=== PATIENT | female | born 1935 | race Caucasian/White ===

== ENCOUNTER 2021-05-08 13:26 | Inpatient (IN) | payer MEDICARE ==
[~2021-05-08] VITALS: Ht 165.1 cm; Wt 51.9 kg
[2021-05-08] MEDS ORDERED: NAPR220 PO (13:38)
[2021-05-08] MEDS ORDERED: ASPI81CH PO (13:38)
[2021-05-08 16:29] LABS: BASOPHILS ABSOLUTE AUTO 0.04 K/mm3 (0.00-0.23); BASOPHILS PERCENT AUTO 0 % (0-2); EOSINOPHILS ABSOLUTE AUTO 0.02 K/mm3 (0.00-0.68); EOSINOPHILS PERCENT AUTO 0 % (0-6); IMMATURE GRAN ABSOLUTE AUTO 0.03 K/mm3 (0.00-0.10); IMMATURE GRAN PERCENT AUTO 0 % (0-1); LYMPHOCYTES ABSOLUTE AUTO 0.82 K/mm3 (0.84-5.20); LYMPHOCYTES PERCENT AUTO 7 % (21-46); MONOCYTES ABSOLUTE AUTO 0.48 K/mm3 (0.16-1.47); MONOCYTES PERCENT AUTO 4 % (4-13); Mean Corpuscular HGB 30.8 pg (26.0-34.0); Mean Corpuscular HGB Conc 32.5 g/dL (31.5-36.5); Mean Corpuscular Volume 95 fL (80-100); Mean Platelet Volume 10.7 fL (9.1-12.4); NEUTROPHILS ABSOLUTE AUTO 10.43 K/mm3 (1.96-9.15); NEUTROPHILS PERCENT AUTO 88 % (41-73); Platelet Count 211 K/mm3 (150-400); RDW Standard Deviation 44.9 fL (35.1-46.3); Red Blood Cell Count 4.22 M/mm3 (3.80-5.20); White Blood Cell Count 11.82 K/mm3 (4.00-11.30)
[2021-05-08 16:45] LABS: Alanine Aminotransfer (ALT/SGP 16 U/L (12-78); Albumin, Blood 3.6 g/dL (3.4-5.0); Albumin/Globulin Ratio 1.1 (0.8-1.8); Alk Phos 66 U/L (50-136); Anion Gap 3 mmol/L (6-16); Aspartate Aminotrans (AST/SGOT 20 U/L (12-37); Bilirubin, Total 0.9 mg/dL (0.1-1.0); Blood Urea Nitrogen 15 mg/dL (8-24); Bun/Creatinine Ratio 23.7 (12.0-20.0); CO2, Blood 26 mmol/L (21-32); Calcium, Blood 8.5 mg/dL (8.5-10.1); Chloride, Blood 109 mmol/L (98-108); Creatinine, Blood 0.63 mg/dL (0.40-1.00); Globulin, Blood 3.2 g/dL (2.2-4.0); Glomerular Filtration Rate >60 (60-); Glucose, Blood 108 mg/dL (70-99); Potassium, Blood 4.3 mmol/L (3.5-5.5); Sodium, Blood 138 mmol/L (136-145); Total Protein, Blood 6.8 g/dL (6.4-8.2)
[2021-05-08 16:57] LABS: Influenza A, PCR NEGATIVE (NEGATIVE); Influenza B, PCR NEGATIVE (NEGATIVE); Resp Syncytial Virus, PCR NEGATIVE (NEGATIVE); SARS-Cov-2 (COVID-19) PCR, MMC NEGATIVE (NEGATIVE)
[2021-05-08 17:30] LABS: Prothrombin Time Results 10.5 Sec (9.7-11.5)
--- NOTE | 2021-05-08 19:21 | NUR ---
PT. REFUSED TO USE BEDPAN FOR VOIDING, TELEPHONE ORDER RECEIVED FROM dR. FOREMAN TO INSERT ALVARADO CATHETER, TORB.
[2021-05-08 19:56] LABS: Source, Urine Foley catheter
[2021-05-08 19:59] LABS: Bilirubin, Urine Neg (Neg); Blood, Urine Neg (Neg); Glucose Qualitative, Urine Neg (Neg); Ketones, Urine 1+ (Neg); Leukocyte Esterase, Urine 2+ (Neg); Nitrite, Urine Neg (Neg); Protein, Urine Neg (Neg); Urobilinogen, Urine NORM (Normal); pH, Urine 6.5 (5.0-8.0)
[2021-05-08 20:14] LABS: Appearance, Urine Clear (Clear); Bacteria Rare /hpf; Color, Urine Yellow (P-Yellow); Red Blood Cells, Urine Not Seen /hpf (0-2); Squamous Epithelial Cells Not Seen /hpf (Few); Yeast/Fungi Urine Many /hpf
--- NOTE | 2021-05-09 05:36 | NUR ---
DINING HOST SUMMARY PT AAOX4 AND PLEASANT. DR RENTERIA IN TO SEE PT AT START OF SHIFT, PLAN FOR ADDITIONAL XRAYS THIS AM AND SURGERY LATER TODAY. ALVARADO CATH PLACED FOR COMFORT PT WAS TOO PAINFUL TO USE BEDPAN. MEDICATED FOR PAIN WITH IV FENTANYL X3 WITH GOOD RELIEF. VSS, WILL CONTINUE TO MONITOR.
--- NOTE | 2021-05-09 11:03 | NUR ---
PT TO DAY SURGERY AT THIS TIME.
--- NOTE | 2021-05-09 11:51 | NUR ---
PT BEEN HERE TO [facility] BY BED RECENTLY BY OTHER STAFF. History, Chart, Medications and Allergies reviewed before start of procedure. Lungs clear T/O to Auscultation, DISCUSSED WITH DR VINCENT. Patient confirms NPO status and agrees with scheduled surgery. Pre-Op teaching done. Pt verbalizes understanding.
--- NOTE | 2021-05-09 12:57 | NUR ---
05/09/21 Víctor Sethi PT TO OR WITH ALVARADO PRESENT OF MEDIUM DARK YELLOW CLEAR URINE. DRAINED APPROX. 680CC AT START OF CASE.
--- NOTE | 2021-05-09 15:24 | NUR ---
PT BACK FROM DAY SURGERY. NO COMPLAINTS OF PAIN. 2 AQUACEL DRESSINGS TO R HIP CDI.
--- NOTE | 2021-05-09 17:24 | NUR ---
SHIFT SUMMARY PT S/P GAMMA NAILING OF R HIP. 2 AQUACEL DRESSINGS CDI. PT'S PAIN HAS GREATLY IMPROVED SINCE SURGERY AND SHE IS TOLERATING PO INTAKE WELL. PT REMAINS ON ROOM AIR SATTING >92% AND IS A/O X4. VSS. WILL REPORT TO BRIAN HOWE.
[2021-05-10 04:15] LABS: BASOPHILS ABSOLUTE AUTO 0.01 K/mm3 (0.00-0.23); BASOPHILS PERCENT AUTO 0 % (0-2); EOSINOPHILS PERCENT AUTO 0 % (0-6); Hematocrit 34.7 % (33.0-51.0); Hemoglobin 11.5 g/dL (11.5-16.0); IMMATURE GRAN ABSOLUTE AUTO 0.03 K/mm3 (0.00-0.10); IMMATURE GRAN PERCENT AUTO 0 % (0-1); LYMPHOCYTES PERCENT AUTO 9 % (21-46); MONOCYTES ABSOLUTE AUTO 0.97 K/mm3 (0.16-1.47); MONOCYTES PERCENT AUTO 10 % (4-13); Mean Corpuscular HGB 31.1 pg (26.0-34.0); Mean Corpuscular HGB Conc 33.1 g/dL (31.5-36.5); Mean Corpuscular Volume 94 fL (80-100); Mean Platelet Volume 10.9 fL (9.1-12.4); NEUTROPHILS ABSOLUTE AUTO 8.27 K/mm3 (1.96-9.15); NEUTROPHILS PERCENT AUTO 81 % (41-73); Platelet Count 172 K/mm3 (150-400); RDW Coefficient Variation 12.7 % (11.7-14.2); RDW Standard Deviation 44.2 fL (35.1-46.3); White Blood Cell Count 10.18 K/mm3 (4.00-11.30)
--- NOTE | 2021-05-10 06:22 | NUR ---
SHIFT SUMMARY POD1 R HIP GAMMA NAILING DUE TO GLF. VSS. TOLERATING PO INTAKE. DENIES NAUSEA AND VOMITING. PT REPORTS PAIN ON R HIP/LEG WITH MOVEMENT 8/10 PAIN LEVEL. PAIN MANAGED WITH 0.5ML FENTANYL. PT DENIES ANY N/T. ALVARADO INTACT, PATENT AND DRAINING. VOIDING ADEQUATELY. PT DENIES CHEST PAIN AND SOB. PT HAD A HARD TIME SLEEPING LAST NIGHT DUE TO THE NOISE FROM IV PUMP. I OFFERED EAR PLUGS AND IT DID HELPED WITH HER SLEEP. DEXTROSE 5% INFUSING AT 80ML/HR. SCD IN PLACE. CALL LIGHT WITHIN REACH. WILL PROVIDE REPORT TO ONCOMING NURSE.
--- NOTE | 2021-05-10 12:18 | NUR ---
SPOKE W/ PATIENT ABOUT GETTING OUT OF BED FOR LUNCH. SHE REFUSES TO AT THIS TIME, STATES "NOT BEFORE I EAT MY LUNCH". WILL CONT TO ENCOURAGE HER TO GET OUT OF BED.
--- NOTE | 2021-05-10 17:02 | NUR ---
SHIFT SUMMARY POD 1 GAMMA NAILING TO R HIP. VSS ON RA. X2 AQUACELS IN PLACE TO R HIP, C/D/I. 2 PERSON ASSIST W/FWW & GB. TRANSFERED TO CHAIR TODAY W/ THERAPY X1. TOLERATED WELL BUT VERY PAINFUL. MEDICATED PER EMAR W/ OXYCODONE T/O SHIFT, PT RESPONDED WELL WITH THAT. TOLERATING PO INTAKE WELL. IV FLUIDS & IV REMOVED PER DR. MOURA D/T PATIENT REQUEST TO HAVE IV REMOVED. [facility]
--- NOTE | 2021-05-10 21:07 | NUR ---
CATHETER CARE DONE WITH READYCLEANSE WIPES, PT. TOLERATED WELL.
--- NOTE | 2021-05-11 03:21 | NUR ---
SHIFT SUMMARY: PT. AOX4, C/O RLE MEDICATED PER EMAR.R HIP INCISIONS WITH AQUACEL C/D/I. ALVARADO CATHETER DRAINING YELLOW URINE VIA GRAVITY. C/O R HIP PAIN MEDICATED PER EMAR. SLEEPING WELL, NO ACUTE CHANGES NOTED. WILL CONTINUE TO MONITOR.
[2021-05-11 04:45] LABS: BASOPHILS ABSOLUTE AUTO 0.02 K/mm3 (0.00-0.23); BASOPHILS PERCENT AUTO 0 % (0-2); EOSINOPHILS ABSOLUTE AUTO 0.08 K/mm3 (0.00-0.68); EOSINOPHILS PERCENT AUTO 1 % (0-6); Hematocrit 34.3 % (33.0-51.0); Hemoglobin 11.2 g/dL (11.5-16.0); IMMATURE GRAN ABSOLUTE AUTO 0.02 K/mm3 (0.00-0.10); IMMATURE GRAN PERCENT AUTO 0 % (0-1); LYMPHOCYTES ABSOLUTE AUTO 1.57 K/mm3 (0.84-5.20); LYMPHOCYTES PERCENT AUTO 18 % (21-46); MONOCYTES ABSOLUTE AUTO 0.67 K/mm3 (0.16-1.47); MONOCYTES PERCENT AUTO 8 % (4-13); Mean Corpuscular HGB 30.7 pg (26.0-34.0); Mean Corpuscular HGB Conc 32.7 g/dL (31.5-36.5); Mean Corpuscular Volume 94 fL (80-100); Mean Platelet Volume 10.7 fL (9.1-12.4); NEUTROPHILS ABSOLUTE AUTO 6.16 K/mm3 (1.96-9.15); NEUTROPHILS PERCENT AUTO 72 % (41-73); Platelet Count 187 K/mm3 (150-400); RDW Coefficient Variation 12.9 % (11.7-14.2); RDW Standard Deviation 44.7 fL (35.1-46.3); Red Blood Cell Count 3.65 M/mm3 (3.80-5.20); White Blood Cell Count 8.52 K/mm3 (4.00-11.30)
--- NOTE | 2021-05-11 10:40 | NUR ---
ENCOURAGED PATENT TO GET UP TO CHAIR THIS AM. PT REFUSES AT THIS TIME AND STATES SHE WOULD LIKE MORE REST. WILL CONTINUE TO ENCOURAGE ACTIVITY.
--- NOTE | 2021-05-11 16:31 | NUR ---
SHIFT SUMMARY POD 2 GAMMA NAILING TO R HIP. X2 ACQUACELS IN PLACE, C/D/I. PAIN TO R LEG MANAGED PER EMAR, PT REPORTS PAIN TO BE MANAGABLE W/ MEDICATION. VSS ON RA. TOLERATING PO DIET WELL ALTHOUGH HAS HAD A POOR APPETITE TODAY. OFFERED TO ASSIST PATIENT TO CHAIR, PATIENT DECLINES T/O SHIFT. CONTINUING TO ENCOURAGE MOBILITY. WILL REPORT TO ONCOMING RN.
--- NOTE | 2021-05-11 20:27 | NUR ---
CATHETER CARE DONE WITH READYCLEANSE WIPES, PT. TOLERATED WELL.
--- NOTE | 2021-05-12 01:56 | NUR ---
SHIFT SUMMARY: PT. AOX4 BUT APPEARS SAD TODAY, WHEN ASKED, PT. STATED " I JUST DON'T FEEL GOOD, MY RIGHT FOOT HURTS", MEDICATED PER EMAR, REPOSITIONED & PLACED PILLOW UNDER LOWER LEGS WHICH PT. SAID " FEELS BETTER". ALVARADO CATHETER CARE DONE WITH READYCLEANSE WIPES, DRAINING CLYDE URINE VIA GRAVITY. PT. REFUSED TO GET UP ON DAYSHIFT. REPOSITIONED SIDE TO SIDE WITH PILLOW ON HER BACK. ABLE TO MAKE NEEDS KNOWN, CLWR.NO ACUTE CHANGES NOTED.WILL CONTINUE TO MONITOR,
[2021-05-12] MEDS ORDERED: MULVITA PO (10:18)
[2021-05-12] MEDS ORDERED: DOCU100 PO (10:18)
[2021-05-12] MEDS ORDERED: OXAYDO5 M1 PO (10:19)
[2021-05-12] MEDS ORDERED: VITAMIN D5000 UNIT PO (10:20)
[2021-05-12] MEDS ORDERED: XARELTO20 MG PO (10:41)
--- NOTE | 2021-05-12 11:55 | NUR ---
Received referral from nurse doggy daycare activities director (Soni Prince) on 05/12/2021. Patient is to discharge 05/12/2021 with orders for home health and elected [facility]. Met with patient to further discuss the above. Patient is agreeable to the above. Discussed homebound status definition with patient. Patient verbalized understanding. Discussed what home health is vs what it is not (in home caregivers/housekeeping). Patient verbalized understanding. Discussed the next steps in the process of an initial assessment to determine frequency of visits. Again patient verbalized understanding. Offered a chance for patient to ask questions regarding the above of which there were none. Gathered all supporting documentation for referral (face sheet, face to face, med list, H&P, and most recent PT assessment) and sent to [facility] for review. No further interventions required. Pallavi Álvarez Referral Liaison
--- NOTE | 2021-05-12 16:10 | NUR ---
PT. DISCHARGED TO HOME. DC INSTRUCTIONS EXPLAINED AND COPY SENT WITH PATIENT. W/C TRANSPORT HERE TO TAKE PT. HOME. PATIENT DID NOT VOID BUT STATES SHE DOES NOT HAVE TO YET. BLADDER SCANNED FOR LARGEST AMOUNT 29ML. PATIENT INSISTS ON LEAVING REGARDLESS OF VOID STATUS. BLADDER NON DISTENDED. PATIENT PAIN AT A TOLERABLE LEVEL. SON TOOK PRESCRIPITON OF PAIN MED TO [facility] AND GOT IT FILLED. W/C TO EXIT WITH BELONGINGS.
== END 2021-05-12 16:10 | disposition home health service (06) | DRG 482 ==
LOC: ER 13:26 → SURS 18:22 → MEDS 18:22 → SURS 18:35
PROVIDERS: Emergency Medicine; Orthopaedic Surgery; ADMIT Internal Medicine
PROC: 0QS636Z Reposition Right Upper Femur with Intramedullary Internal Fixation Device, Percutaneous Approach (ICD-10-PCS; principal; 2021-05-09 12:00)
DX: S72.141A Displaced intertrochanteric fracture of right femur, initial encounter for closed fracture (principal); Z20.822 Contact with and (suspected) exposure to COVID-19; Z66 Do not resuscitate; B37.3 Candidiasis of vulva and vagina; J44.9 Chronic obstructive pulmonary disease, unspecified; Z28.21 Immunization not carried out because of patient refusal; M54.9 Dorsalgia, unspecified; G89.29 Other chronic pain; F10.20 Alcohol dependence, uncomplicated; F17.200 Nicotine dependence, unspecified, uncomplicated; Z79.82 Long term (current) use of aspirin; Z79.899 Other long term (current) drug therapy; Z88.0 Allergy status to penicillin; Z98.890 Other specified postprocedural states; W19.XXXA Unspecified fall, initial encounter
CPT/HCPCS: 0241U; 36415; 72170; 73552; 73560-RT; 73590; 80053; 81001; 85025; 85610; 93005; 93010; 94760; 96374; 97110; 97116; 97161; 97166; 97530; 99284-25; A9270; C1713; J0690; J1100; J1650; J2250; J2370; J2405; J2704; J3010; J7070; J7120

== ENCOUNTER 2021-06-30 13:05 | Inpatient (IN) | payer MEDICARE ==
[~2021-06-30] VITALS: Ht 165.1 cm; Wt 62.5 kg
[~2021-06-30 13:05] MED LIST: ASPI81CH PO; DOCU100 PO; MULVITA PO; NAPR220 PO; OXAYDO5 M1 PO; VITAMIN D5000 UNIT PO; XARELTO20 MG PO
[2021-06-30 13:28] LABS: BASOPHILS ABSOLUTE AUTO 0.03 K/mm3 (0.00-0.23); BASOPHILS PERCENT AUTO 0 % (0-2); EOSINOPHILS ABSOLUTE AUTO 0.02 K/mm3 (0.00-0.68); EOSINOPHILS PERCENT AUTO 0 % (0-6); Hematocrit 41.9 % (33.0-51.0); Hemoglobin 13.1 g/dL (11.5-16.0); IMMATURE GRAN ABSOLUTE AUTO 0.14 K/mm3 (0.00-0.10); IMMATURE GRAN PERCENT AUTO 1 % (0-1); LYMPHOCYTES ABSOLUTE AUTO 1.51 K/mm3 (0.84-5.20); LYMPHOCYTES PERCENT AUTO 10 % (21-46); MONOCYTES ABSOLUTE AUTO 0.59 K/mm3 (0.16-1.47); MONOCYTES PERCENT AUTO 4 % (4-13); Mean Corpuscular HGB 28.7 pg (26.0-34.0); Mean Corpuscular HGB Conc 31.3 g/dL (31.5-36.5); Mean Corpuscular Volume 92 fL (80-100); Mean Platelet Volume 11.1 fL (9.1-12.4); NEUTROPHILS ABSOLUTE AUTO 13.03 K/mm3 (1.96-9.15); NEUTROPHILS PERCENT AUTO 85 % (41-73); Platelet Count 451 K/mm3 (150-400); RDW Coefficient Variation 13.4 % (11.7-14.2); RDW Standard Deviation 45.1 fL (35.1-46.3); Red Blood Cell Count 4.56 M/mm3 (3.80-5.20); White Blood Cell Count 15.32 K/mm3 (4.00-11.30)
[2021-06-30 13:46] LABS: Albumin/Globulin Ratio 0.4 (0.8-1.8); Bilirubin, Total 1.7 mg/dL (0.1-1.0); Bun/Creatinine Ratio 22.3 (12.0-20.0); Calcium, Blood 8.3 mg/dL (8.5-10.1); Creatinine, Blood 0.85 mg/dL (0.40-1.00); Globulin, Blood 5.3 g/dL (2.2-4.0); Potassium, Blood 3.1 mmol/L (3.5-5.5); Total Protein, Blood 7.3 g/dL (6.4-8.2)
--- NOTE | 2021-06-30 16:40 | NUR ---
ASSUMED CARE PT. ARRIVES FROM ED. ALERT AND ORIENTED UPON ARRIVAL. PT. ARRIVES ON 1L NC, DENIES ANY SOB, OCCASIONAL PRODUCTIVE COUGH NOTED. PT. DENIES ANY CHEST PAIN OR PRESSURE BUT DOES HAVE PALPITATIONS. PT. PLACED ON MARKETING ADMINISTRATIVE ASSISTANT HR 140S. PT. REPORTS FREQUENT BOWL MOVEMENTS AT HOME, ALONG WITH INCREASING WEAKENSS AND DECREASED APPETITE. STOOL SAMPLE TO BE OBTAINED NEXT BM. PICTURES OBTAINED FOR CHART FOR ULCER TO R HEEL AND REDNESS TO COCCYX. PLANS TO CALL FOR MED CLARIFICATION. CALL LIGHT IN REACH.
--- NOTE | 2021-06-30 17:46 | NUR ---
CALL TO DR. MOREL FOR MEDICATION CLARIFICATION. PLANS FOR AMIO GTT AND FLUIDS.
--- NOTE | 2021-06-30 19:15 | NUR ---
ASSUMPTION OF CARE PT RECEIVING AMIODARONE 1MG/MIN, NS 150ML/HR AND KCL SUPPLEMENT. SHE IS ALERT AND ORIENTED. SEALS ENGRAVER SHOWS AFIB WITH RATE 110S-140S. CENTRAL LINE TO RI. PT REQUESTS SOMETHING TO HELP HER SLEEP TONIGHT. DENIES PAIN OR DISCOMFORT AT THIS TIME. SEE SHIFT ASSESSMENT.
--- NOTE | 2021-06-30 22:00 | NUR ---
ASSUMED CARE PATIENT LYING IN BED WITH EYES OPEN. TRACKS TO SOUND. COVID TEST COLLECTED AND SENT, SPUTUM CULTURE SENT. AMIODARONE INF @ 1MG/MIN, KCL INF, AND NS @ 150ML/HR INF TO RT IJ CL. FOOD ON BEDSIDE TABLE IN REACH OF PATIENT. CALL LIGHT IN REACH. MONITOR SHOWS ATRIAL FIB WITH RATE 100'S-120'S. PATIENT DENIES CHEST PAIN AND DISCOMFORT AT THIS TIME. REPORT COMPLETED WITH CARLEY REED.
[2021-06-30 23:32] LABS: SARS-Cov-2 (COVID-19) PCR, MMC POSITIVE (NEGATIVE)
[2021-07-01 03:50] LABS: BASOPHILS ABSOLUTE AUTO 0.01 K/mm3 (0.00-0.23); BASOPHILS PERCENT AUTO 0 % (0-2); EOSINOPHILS PERCENT AUTO 0 % (0-6); Hemoglobin 10.3 g/dL (11.5-16.0); IMMATURE GRAN PERCENT AUTO 1 % (0-1); LYMPHOCYTES ABSOLUTE AUTO 0.65 K/mm3 (0.84-5.20); LYMPHOCYTES PERCENT AUTO 5 % (21-46); MONOCYTES ABSOLUTE AUTO 0.23 K/mm3 (0.16-1.47); MONOCYTES PERCENT AUTO 2 % (4-13); Mean Corpuscular HGB 28.6 pg (26.0-34.0); Mean Corpuscular HGB Conc 32.2 g/dL (31.5-36.5); Mean Corpuscular Volume 89 fL (80-100); Mean Platelet Volume 11.1 fL (9.1-12.4); NEUTROPHILS ABSOLUTE AUTO 12.12 K/mm3 (1.96-9.15); NEUTROPHILS PERCENT AUTO 92 % (41-73); Platelet Count 281 K/mm3 (150-400); RDW Coefficient Variation 13.3 % (11.7-14.2); RDW Standard Deviation 43.9 fL (35.1-46.3); White Blood Cell Count 13.11 K/mm3 (4.00-11.30)
[2021-07-01 04:16] LABS: Albumin, Blood 1.7 g/dL (3.4-5.0); Albumin/Globulin Ratio 0.4 (0.8-1.8); Bilirubin, Total 0.5 mg/dL (0.1-1.0); Bun/Creatinine Ratio 35.9 (12.0-20.0); Calcium, Blood 6.8 mg/dL (8.5-10.1); Creatinine, Blood 0.67 mg/dL (0.40-1.00); Globulin, Blood 3.9 g/dL (2.2-4.0); Potassium, Blood 3.7 mmol/L (3.5-5.5); Total Protein, Blood 5.6 g/dL (6.4-8.2)
--- NOTE | 2021-07-01 06:16 | NUR ---
SHIFT SUMMARY PATIENT SLEPT THROUGH MOST OF SHIFT. NO URINE OUTPUT OR BM THIS SHIFT. AMIODARONE DECREASED FROM 1MG/MIN TO 0.5MG/MIN AT 2335. RHYTHM REMAINED A FIB WITH RATE 90'S-140'S. PATIENT REMAINED 90'S-110'S FOR APPROXIMATELY 30 MINUTES, THEN RETURNED TO 120'S-140'S. COVID TEST CAME BACK POSITIVE. SPUTUM CULTURE SENT. PATIENT FELT SHORT OF BREATH EARLY THIS MORNING DESPITE SPO2 BEING 91-93%. 2LNC PLACED ON PATIENT WITH SPO2 98%. BY END OF SHIFT PATIENT REQUESTED NC BE REMOVED-SPO2 NOW 93%. BP REMAINED STABLE-NO PRESSORS NEEDED. PATIENT HELPED WITH TURNS AND USED CALL LIGHT APPROPRIATELY. NO OTHER CHANGES DURING SHIFT.
--- NOTE | 2021-07-01 12:00 | NUR ---
PT HAD NOT VOIDED YET THIS SHIFT. SHE STATES SHE HAS NO URGE TO GO WHICH IS UNUSUAL FOR HER. BLADDER SCAN SHOWS 600ML. STRAIGHT CATH PROCEDURE PERFORMED UNDER STERILE PROCEDURE. 550ML OF URINE DRAINED.
[2021-07-01 18:00] LABS: Base Excess Venous -16.5 mmol/L; Bicarbonate Venous 12.2 mmol/L (24.0-30.0); PO2 Venous 57.8 mmHg (38-42)
[2021-07-01 18:03] LABS: BASOPHILS ABSOLUTE AUTO 0.04 K/mm3 (0.00-0.23); BASOPHILS PERCENT AUTO 0 % (0-2); EOSINOPHILS PERCENT AUTO 0 % (0-6); Hemoglobin 9.9 g/dL (11.5-16.0); IMMATURE GRAN ABSOLUTE AUTO 0.45 K/mm3 (0.00-0.10); IMMATURE GRAN PERCENT AUTO 2 % (0-1); LYMPHOCYTES ABSOLUTE AUTO 1.25 K/mm3 (0.84-5.20); LYMPHOCYTES PERCENT AUTO 6 % (21-46); MONOCYTES ABSOLUTE AUTO 0.48 K/mm3 (0.16-1.47); MONOCYTES PERCENT AUTO 2 % (4-13); Mean Corpuscular HGB Conc 30.9 g/dL (31.5-36.5); Mean Platelet Volume 11.5 fL (9.1-12.4); NEUTROPHILS ABSOLUTE AUTO 18.55 K/mm3 (1.96-9.15); NEUTROPHILS PERCENT AUTO 89 % (41-73); Platelet Count 314 K/mm3 (150-400); RDW Coefficient Variation 13.7 % (11.7-14.2); Red Blood Cell Count 3.41 M/mm3 (3.80-5.20); White Blood Cell Count 20.77 K/mm3 (4.00-11.30)
[2021-07-01 18:17] LABS: Source, Urine Foley catheter
[2021-07-01 18:23] LABS: Appearance, Urine Hazy (Clear); Bilirubin, Urine Neg (Neg); Blood, Urine 1+ (Neg); Color, Urine Amber (P-Yellow); Glucose Qualitative, Urine Neg (Neg); Ketones, Urine 1+ (Neg); Leukocyte Esterase, Urine 1+ (Neg); Nitrite, Urine Neg (Neg); Protein, Urine 2+ (Neg); Specific Gravity, Urine 1.025 (1.003-1.022); Urobilinogen, Urine 1+ (Normal)
[2021-07-01 18:27] LABS: Albumin, Blood 1.4 g/dL (3.4-5.0); Albumin/Globulin Ratio 0.4 (0.8-1.8); Bilirubin, Total 0.4 mg/dL (0.1-1.0); Bun/Creatinine Ratio 36.9 (12.0-20.0); Calcium, Blood 6.7 mg/dL (8.5-10.1); Creatinine, Blood 0.68 mg/dL (0.40-1.00); Globulin, Blood 3.6 g/dL (2.2-4.0); Potassium, Blood 4.5 mmol/L (3.5-5.5)
[2021-07-01 18:33] LABS: Mean Corpuscular Volume 94 fL (80-100)
--- NOTE | 2021-07-01 18:39 | NUR ---
PT WAS MOVED FROM ICU 14 TO ICU 6. PT HAD BEEN A/OX4 ALL DAY, USING CALL LIGHT APPROPRIATELY. AFTER MOVE TO NEW ROOM PT STATES SHE "CAN'T BREATHE". SPO2 IN THE 90'S, BUT PLACED 4L NC FOR COMFORT WHICH DID NOT HELP. PT WAS STILL TALKING IN FULL SENTENCES AND DOES NOT LOOK ANYMORE DISTRESSED THAN SHE HAD ALL DAY. HR REMAINED IN 120'S-140'S ON AMIO GTT. GOT A DOSE OF PO METOPROLOL. LS WERE COARSE BUT LS HAD BEEN COARSE T/O THE DAY. BLADDER SCAN ONLY SHOWED 35ML. CONSULTED RT THAT SAID PT WAS NOT APPROPRIATE FOR BREATHING TX SHE IS NOT WHEEZING. DID NOT APPEAR FLUID OVERLOADED. AFTER COMING OUT OF THE ROOM BRIEFLY, NOTICED THERE WAS A LOW BP READING WHICH HAD HAPPENED T/O THE DAY AND EVERYTIME IT WAS RETAKEN IT WOULD BE NORMAL. WENT TO THE DOOR TO CHECK ON PT AND PT WAS AGONAL BREATHING, PALE, AND UNRESPONSIVE. IMMEDIATELY STOPPED AMIO GTT, GOT RT TO THE ROOM, BAGGED PT, STARTED BOLUS, CALLED DR. RIDDLE, AND SUPERVISER CALLED FAMILY. PT IS DNR. AFTER ABOUT 2 MINUTES OF BAGGING PT STARTED BECOMING RESPONSIVE, BP IMPROVED, AND WAS ABLE TO GET SPO2 READING AGAIN. AFTER PT WAS RESPONSIVE SHE STATES THAT SHE HAS TO "PEE PEE" WHICH IS THE FIRST TIME ALL DAY SHE HAD THE URGE TO GO. PT STILL UNABLE TO VOID, ALVARADO PLACED FOR ACCURATE OUTPUT. DR. ROMO CONSULTED. LABS DRAWN. EKG DONE. PT IS ABLE TO VERBALIZE AND STATES SHE FEELS BETTER THAN SHE DID EARLIER. LS NOW ARE CLEAR AND WAS ABLE TO MOVE HER BACK TO 4L NC. PALLIATIVE CARE RN CALLED FAMILY AND UPDATED THEM. REPORTING OFF TO NOC RN.
[2021-07-01 19:17] LABS: Bacteria Mod /hpf; Squamous Epithelial Cells Many /hpf (Few); Yeast/Fungi Urine Many /hpf
[2021-07-01 19:18] LABS: Hyaline Casts 0-2 /lpf (0-2); Renal Tubular Epi Cast 0-2 /lpf (0)
--- NOTE | 2021-07-01 20:00 | NUR ---
ASSUMED CARE OF PT AT 1915. REPORT RECEIVED. PT PRESENTS IN BED. ALERT AND ORIENTED. SOMEWHAT FORGETFUL AT TIMES. PT WITH BLOOD PRESSURES THAT ARE BORDERLINE LOW. PLEASE SEE VITAL SIGN FLOWSHEET FOR DETAILS. PT ABLE TO HAVE AND HOLD FULL CONVERSATIONS AT THIS TIME. WILL REVIEW CHART AND PLAN OF CARE FOR THIS PT.
[2021-07-01 21:24] LABS: PCO2 Venous 34.8 mmHg (38-42); pH Blood Venous 7.22 (7.34-7.37)
[2021-07-01 21:25] LABS: Base Excess Venous 13.1 mmol/L; Bicarbonate Venous 14.9 mmol/L (24.0-30.0); PO2 Venous 72.9 mmHg (38-42)
--- NOTE | 2021-07-01 23:54 | NUR ---
HAVE STARTED MAY AT THIS TIME AT VERY LOW RATE OF 5MCG'S. WILL TITRATE UP NEEDED. DID DO TEACHING WITH PT ON MED. PT REMAINS WITH LOW URINARY OUTPUT. WILL MONITOR CLOSELY.
--- NOTE | 2021-07-02 06:30 | NUR ---
CHARTING HAS REFLECTED MEDITECH DOWNTIME. PT HAS STATED THAT SHE HAD ISSUES WITH SLEEP TONIGHT. BLOOD PRESSURES HAVE IMPROVED WITH MAY. SEE VS FLOWSHEET FOR DETAILS. ONLY 75 ML URINE OUTPUT FROM ALVARADO THIS SHIFT. THIS COMPARABLE TO DAYSHIFT OUTPUT. WILL CONTINUE TO MONITOR PT, AND WILL REPORT OFF TO ONCOMING RN.
--- NOTE | 2021-07-02 08:52 | NUR ---
ECHO IN ROOM NOW, PATIENT ALERT AND ORIENTED, CALL LIGHT WITH IN REACH, WILL MEDICATE WITH AM MEDS AFTER THE CHO, PLEASANT TO CARE
[2021-07-02 09:22] LABS: Hematocrit 29.5 % (33.0-51.0); Hemoglobin 9.4 g/dL (11.5-16.0); Mean Corpuscular HGB 28.7 pg (26.0-34.0); Mean Corpuscular HGB Conc 31.9 g/dL (31.5-36.5); Mean Corpuscular Volume 90 fL (80-100); Mean Platelet Volume 12.4 fL (9.1-12.4); Platelet Count 200 K/mm3 (150-400); RDW Coefficient Variation 13.8 % (11.7-14.2); RDW Standard Deviation 45.3 fL (35.1-46.3); Red Blood Cell Count 3.28 M/mm3 (3.80-5.20); White Blood Cell Count 24.83 K/mm3 (4.00-11.30)
[2021-07-02 10:13] LABS: Bun/Creatinine Ratio 33.2 (12.0-20.0); Calcium, Blood 6.5 mg/dL (8.5-10.1); Creatinine, Blood 0.99 mg/dL (0.40-1.00); Potassium, Blood 3.7 mmol/L (3.5-5.5)
--- NOTE | 2021-07-02 14:18 | NUR ---
Echocardiogram completed.
--- NOTE | 2021-07-02 14:38 | NUR ---
DR RIDDLE ROUNDED
--- NOTE | 2021-07-02 16:12 | NUR ---
WOUND CARE NURSE IN SEEING PATIENT NOW TO ADDRESS MIKE HEEL AND COCCYX
[2021-07-02 16:58] LABS: Appearance, Urine Hazy (Clear); Bilirubin, Urine Neg (Neg); Blood, Urine 4+ (Neg); Glucose Qualitative, Urine Neg (Neg); Ketones, Urine Neg (Neg); Leukocyte Esterase, Urine Neg (Neg); Nitrite, Urine Neg (Neg); Protein, Urine 1+ (Neg); Urobilinogen, Urine NORM (Normal)
[2021-07-02 17:09] LABS: Color, Urine Pale Yellow (P-Yellow)
[2021-07-02 17:10] LABS: Yeast/Fungi Urine Many /hpf
[2021-07-02 17:11] LABS: Hyaline Casts 0-2 /lpf (0-2); Squamous Epithelial Cells Mod /hpf (Few)
[2021-07-02 17:12] LABS: Bacteria Few /hpf
--- NOTE | 2021-07-02 18:54 | NUR ---
PATIENT ALERT AND ORIENTED, CONFUSED AND FORGETFUL AT TIMES, BECOMES OPPISTIONAL AND IRRITABLE EASILY. DEEP NON PRODUCTIVE COUGH, UA SENT FOR SAMPLE, OUTPUT IMPORVED TO 45O ML, GYMNASTICS INSTRUCTOR CAME AND CGHANGED THE DRESSINGS ON THE LEFT HEEL AND COCCYX, DIRECTIONS IN ORDERS. PATIENT COMPLAINING OF NOT FEELING LIKE SHE IS BREATHING, SATS 100% ON 2L O2 FOR COMORT, ANXIETY HAS INCREASED, CALL AND REPORTED TO DR RIDDLE, WAITING FOR ORDER TO COME THROUGH ON PIXES FOR ATIVAN, PAITENT REFUSES TO HAVE BLINDS OPEN. MORE FAMILY TO COME AND VISIT [facility]. WILL RELAY TO ALYSSA RN, CALL JORGE REYNOSO IN REACH, [facility]
--- NOTE | 2021-07-02 20:00 | NUR ---
ASSUMED CARE OF PT AT 1915. REPORT RECEIVED. PT PRESENTS IN BED. ALERT AND VERY ANXIOUS WITH CHIEF COMPLAINT THAT SHE CAN NOT BREATHE. PT'S OXYEGON SATURATIONS 94-95 PERCENT WITH SUPPLEMENTAL OXYGEN. LUNG SOUNDS DIFFER FROM PREVIOUS DAY'S ASSESSMENT BY SAME RN. RHONCHI SCATTERED THROUGH LEFT LUNG WINN WITH MILD COARSENESS TO UPPER RIGHT DIMINISHED IN BASE. PROVIDED FLUTTER VALVE FOR PT TO USE. TEACHING OF USE AND RATIONALE FOR DEVICE. PT STATES THIS HAS HELPED WITH HER BREATHING. DISCUSSED WITH RESPIRATORY THERAPY THIS APPROACH. HAVE MEDICATED PT AFTERWARDS WITH ONE TIME LORAZEPAM 0.[address] RIDDLE. PT HAS BEEN ABLE TO REST. DID HOLD DOSE UNTIL AFTER HER TWO DAUGHTERS HAD COMPLETED THERE VISIT. WILL REVIEW CHART AND PLAN OF CARE FOR THIS PT.
--- NOTE | 2021-07-03 04:15 | NUR ---
PT HAS BEEN ABLE TO REST BETTER THIS NIGHT. HAS TOLERATED Q 2 HOUR TURNS IN BED. HAS NOT HAD ANY FURTHER COMPLAINTS OF NOT BEING ABLE TO BREATHE. WILL CONTINUE TO MONITOR.
--- NOTE | 2021-07-03 08:41 | NUR ---
AWAKE AND ORIENTED, REFUSED BREAKFAST AND AM ORAL CARE, CALL LIGHT WITH IN REACH, BOOSTED IN BED HOB 70%, SON CALLED THIS AM, WCTM
--- NOTE | 2021-07-03 14:23 | NUR ---
REPORT TO CHER SEALS RN, PATIENT TRANSFERED TO 303, FAMILY NOTIFIED, BELONGINGS SENT WITH PATIENT, NO CHANGES
--- NOTE | 2021-07-03 16:11 | NUR ---
ASSUMED CARE OF PT @1430 FROM ICU. PT ON 2L O2 VIA NC. PT A&O X3. PT WITH FAMILY AT SIDE. PT INSTRUCTED FOR CALL LIGHT USE. PT RESTING WITH SIDERAILS AND CALL LIGHT WITHIN REACH.
--- NOTE | 2021-07-03 18:08 | NUR ---
SHIFT SUMMARY- PT TRANSFERED TO MED FROM ICU. PT PLEASANT MOOD. PT COOPERATIVE WITH PRESCRIBED CARE. PT WITH FAMILY IN ROOM MOST OF SHIFT. PT APPETITE GOOD FOR DINNER. PT RESTING COMFORTABLY WITH CALL LIGHT AND SIDE RAILS UP.
--- NOTE | 2021-07-03 18:53 | NUR ---
pt moved to medical floor. very frail will continue to monitor to see if she can rally. will do polst.
[2021-07-04 05:25] LABS: Base Excess Venous -11.8 mmol/L; Bicarbonate Venous 15.9 mmol/L (24.0-30.0); PCO2 Venous 29.9 mmHg (38-42); PO2 Venous 66.6 mmHg (38-42)
[2021-07-04 05:40] LABS: BASOPHILS ABSOLUTE AUTO 0.04 K/mm3 (0.00-0.23); BASOPHILS PERCENT AUTO 0 % (0-2); EOSINOPHILS ABSOLUTE AUTO 0.16 K/mm3 (0.00-0.68); EOSINOPHILS PERCENT AUTO 1 % (0-6); Hematocrit 32.6 % (33.0-51.0); Hemoglobin 10.3 g/dL (11.5-16.0); IMMATURE GRAN ABSOLUTE AUTO 0.33 K/mm3 (0.00-0.10); IMMATURE GRAN PERCENT AUTO 2 % (0-1); LYMPHOCYTES ABSOLUTE AUTO 0.68 K/mm3 (0.84-5.20); LYMPHOCYTES PERCENT AUTO 3 % (21-46); MONOCYTES ABSOLUTE AUTO 0.47 K/mm3 (0.16-1.47); MONOCYTES PERCENT AUTO 2 % (4-13); Mean Corpuscular HGB 28.3 pg (26.0-34.0); Mean Corpuscular HGB Conc 31.6 g/dL (31.5-36.5); Mean Corpuscular Volume 90 fL (80-100); NEUTROPHILS ABSOLUTE AUTO 19.04 K/mm3 (1.96-9.15); NEUTROPHILS PERCENT AUTO 92 % (41-73); NRBC ABSOLUTE 0.25 K/mm3 (0.00-0.02); NRBC Auto 1.2 /100 WBC (0.0-0.2); RDW Coefficient Variation 14.4 % (11.7-14.2); RDW Standard Deviation 46.9 fL (35.1-46.3); Red Blood Cell Count 3.64 M/mm3 (3.80-5.20); White Blood Cell Count 20.72 K/mm3 (4.00-11.30)
[2021-07-04 05:42] LABS: Mean Platelet Volume 13.2 fL (9.1-12.4)
[2021-07-04 06:08] LABS: Albumin, Blood 1.6 g/dL (3.4-5.0); Albumin/Globulin Ratio 0.5 (0.8-1.8); Bilirubin, Total 1.5 mg/dL (0.1-1.0); Bun/Creatinine Ratio 30.6 (12.0-20.0); Calcium, Blood 6.7 mg/dL (8.5-10.1); Creatinine, Blood 1.44 mg/dL (0.40-1.00); Platelet Count 73 K/mm3 (150-400); Total Protein, Blood 4.6 g/dL (6.4-8.2)
--- NOTE | 2021-07-04 06:14 | NUR ---
SHIFT SUMMARY - IV FLUIDS STOPPED THIS AM - CONTACTED DR. LEMUS WITH UPDATE ON I&O'S AT 0600. RELAYED PT HAS EDEMATOUS UPPER EXTREMITIES ALSO AND PT IS FRAIL AND CACHETIC, WITH POOR PO INTAKE. IV INTAKE 1700, ALVARADO OUTPUT 200. SEE LABS THIS AM. OTHERWISE NO ACUTE CHANGES THROUGHOUT THIS SHIFT. PT HAS BEEN SLEEPING THROUGHOUT MOST OF THE NIGHT. PT DID REPORT ABDOMINAL DISCOMFORT AT THE BEGINNING OF THE SHIFT, BUT DECLINED TYLENOL. CALL LIGHT WITHIN REACH. BED IN LOW POSITION. FLUIDS AT BEDSIDE. WILL CONTINUE TO MONITOR THIS AM. LIVER ENZYMES ELEVATED, KIDNEY FUNCTION DECLINING - SEE LABS.
--- NOTE | 2021-07-04 14:31 | NUR ---
PT PLEASANT AND COOPERATIVE. A/O X3. C/O HEEL PAIN. MEDICATED PER EMAR. H/R REGUALR. AFIB PER TELE STRIP IN CHART. AFIB PER WEAVING INSTRUCTOR TOO. NO MURMUR NOTED. LUNG SOUNDS DIMINISHED. ON ROOM AIR. BREATHING IS EASY AND UNLABORED. ACTIVE BOWEL SOUNDS. ALVARADO DRAINING TO GRAVITY. MINIMAL CLEAR YELLOW URINE PRESENT. MEPLEX IN PLACE OF RT HEEL. HEEL PROTECTORS IN PLACE. +2 PITTING EDEMA ON UPPER EXTREMITES AND LOWER EXTREMITIES. MEPLEX ON COCCYX IN PLACE. PT IS NOT EATING OR DRINKING WELL. REFUSES TO EAT. STATES SHE IS NOT HUNGRY. BED IN LOW POSITION, CALL LIGHT IN REACH, CALLS APPROPRIATLEY.
--- NOTE | 2021-07-04 15:07 | NUR ---
REVIEWED NOTES WOUND CARE DONE ON BY SET UP MACHINIST. PER WOUND CARE ORDERS IT IS TO BE CHANGED EVERY THREE DAYS. MEPLEX IN PLACE IS C/D/I. HEEL PROTECTORS ARE IN PLACE. PT C/O PAIN. MEDICATED PER EMAR.
--- NOTE | 2021-07-04 15:19 | NUR ---
PT SON SILVERIO GLEZ REQUESTING AN UPDATE ON PT. PER PT WE CAN SPEAK TO HIM ABOUT ANYTHING. SILVERIO CAN BE REACHED AT [phone].
--- NOTE | 2021-07-04 16:58 | NUR ---
CALLED PT SON TO RELAY THAT THERE IS DR IS NOT AVAIABLE AT THIS TIME. LEFT VOICEMAIL FOR SON SILVERIO TO CALL US BACK IGF HE HAS ANY IMMEDIATE QUESTIONS. IF NOT AN ATTENDING WILL CALL HIM IN THE MORNING.
--- NOTE | 2021-07-04 18:21 | NUR ---
PT COOPERATIVE WITH CARE. A/O X3. C/O PAIN IN HEELS. MEDICATED PER EMAR. H/R IS IRREGUALR. AFIB PER TELE IN 100'S. NO MURMUR NOTED. COARSE CRACKLES IN LUNGS. ON ROOM AIR. PT HAS ALVARADO CATH DRAINING TO GRAVITY. 75ML OF URINE PRODUCED OVER SHIFT. URINE IS DARK IN COLOR. PT HAS MEPLEX ON COCCYX IN PLACE. WOUND DRESSINGS CHANGED ON . CHANGE Q3DAYS. MEPLEX C/D/I. HEEL PROTECTORS IN PLACE. 2+ PITTING EDEMA ON UPPER EXTREMITES WELL LOWER EXTREMITES. PT DOES NOT HAVE AN APPRETITE. EXPLAINED TO PT HOW IMPORTANT EATING/DRINKING IS. PT DECLINES FOOD AND DOES NOT WANT TO DRINK ANY FLUIDS EITHER. BED IN LOW POSITION, CALL LIGHT IN REACH, CALLS APPROPRIATLEY.
--- NOTE | 2021-07-04 18:53 | NUR ---
AGREE WITH STUDENT NOTES AND DOCUMENTATIONS
--- NOTE | 2021-07-04 20:50 | NUR ---
HOSPITALIST CONTACTED REGARDING PT'S BP OF 86/56. NOTIFIED OF DECREASED FLUID INTAKE AND OUTPUT. ORDER OBTAINED FOR 250 ML BOLUS OF NS. NOTIFIED OF PREVIOUS FLUID DISCONTINUATION DUE TO INCREASED SWELLING OF UPPER AND LOWER EXTREMITIES ALONG WITH COARSE LUNG SOUNDS. I ASKED IF THE PATIENT'S 200 MG OF AMIODORONE SHOULD BE HELD; DR ROBERSON SAYS OK TO ADMINISTER.
--- NOTE | 2021-07-04 22:52 | NUR ---
HOSPITALIST CONTACTED REGARDING NOTED PT GURGLING RESPIRATIONS AND INABILITY TO COUGH ANYTHING UP DESPITE WET COUGH. ORDER OBTAINED FOR NT SUCTIONING PER RT IF NEEDED AND NPO WITH SPEECH EVAL IN THE AM. HOSPITALIST ALSO INFORMED OF PT'S SKIN COLOR CHANGE FROM PALE TO YELLOW-TINGED.
--- NOTE | 2021-07-05 04:36 | NUR ---
TRIAL COURT JUSTICE SUMMARY ADMITTED FOR NEW ONSET A-FIB. PT IS DNR. COVID POSITIVE. SHE HAS HAD DECREASED APPETITE AND NO FLUID INTAKE. BP WAS 86/56 AT START OF SHIFT; 250 ML NS BOLUS ADMINISTERED WITH IMPROVEMENT TO 111/89. PT WITH 3+ PITTING EDEMA TO BUE AND 2+ PITTING EDEMA TO BLE. SHE HAS COARSE LUNG SOUNDS AND POSSIBLE ASPIRATION WITH PM MEDICATIONS. PT IS NPO PENDING SPEECH THERAPY EVAL. PLACED ON 2L BY NC PER RT PT SATTING AT 87% ON RA DURING THE NIGHT. SKIN IS VERY PALE AND PT APPEARS VERY AGED. SHE HAS HAD NO URINE OUTPUT IN THE ALVARADO THIS SHIFT. TELE IS AFIB IN THE 100S TO 110S. SHE IS ALERT AND ORIENTED X3 BUT SEEMS CONFUSED AT TIMES. HANDS AND FEET ARE VERY COLD TO THE TOUCH.
[2021-07-05 05:40] LABS: Hemoglobin 10.5 g/dL (11.5-16.0); Mean Corpuscular HGB 28.5 pg (26.0-34.0); Mean Platelet Volume 12.1 fL (9.1-12.4); NRBC ABSOLUTE 0.55 K/mm3 (0.00-0.02); NRBC Auto 1.9 /100 WBC (0.0-0.2); Platelet Count 79 K/mm3 (150-400); RDW Standard Deviation 52.6 fL (35.1-46.3); Red Blood Cell Count 3.69 M/mm3 (3.80-5.20); White Blood Cell Count 28.46 K/mm3 (4.00-11.30)
[2021-07-05 05:46] LABS: Mean Corpuscular Volume 95 fL (80-100)
--- NOTE | 2021-07-05 05:54 | NUR ---
PT NOTED TO BE PALE AND WITH DECREASED RESPONSIVENESS. BP OF 62/44 AND NO URINE OUTPUT. CONTACTED DR LEMUS AND REQUESTED [id number] EVAL OF PT. UNABLE TO GET PULSE OX DUE TO COLD FINGERS. RT CONTACTED FOR PULSE OX READING. DR. LEMUS TO PT ROOM FOR EVAL AND DECISION MADE FOR TRANSFER TO ICU. [facility]APID RESPONSE CALLED.
--- NOTE | 2021-07-05 05:57 | NUR ---
PT TAKEN TO ICU BY RAPID RESPONSE NURSES AND RT. REPORT AT BEDSIDE TO ICU NURSE. ATTEMPTED TO CONTACT PT SON AND GRANDDAUGHTER BUT NO RESPONSE AT THIS TIME.
[2021-07-05 06:06] LABS: Albumin, Blood 1.6 g/dL (3.4-5.0); Albumin/Globulin Ratio 0.5 (0.8-1.8); Bilirubin, Total 1.1 mg/dL (0.1-1.0); Bun/Creatinine Ratio 28.6 (12.0-20.0); Calcium, Blood 6.9 mg/dL (8.5-10.1); Creatinine, Blood 1.99 mg/dL (0.40-1.00); Potassium, Blood 4.9 mmol/L (3.5-5.5); Total Protein, Blood 4.6 g/dL (6.4-8.2)
[2021-07-05 06:20] LABS: PCO2 Venous 59.3 mmHg (38-42); PO2 Venous 54.4 mmHg (38-42); pH Blood Venous 6.97 (7.34-7.37)
[2021-07-05 06:21] LABS: Base Excess Venous -18.2 mmol/L; Bicarbonate Venous 10.8 mmol/L (24.0-30.0)
--- NOTE | 2021-07-05 06:39 | NUR ---
ASSUMED PT CARE AT 0555 ARRIVED ON RAPID RESPONSE THAT WAS CALLED. PT MINIMALLY RESPONSIVE AND HYPOTENSIVE. NS FLUID BOLUS INFUSING AT TIME OF ARRIVAL. UNABLE TO OBTAIN OXYGEN SATURATIONS D/T POOR PERFUSION. ORDERS TO TRANSFER PT TO ICU. RT AT BEDSIDE PLACING PT ON BIPAP; 20/12; FIO2 100%, RR 20'S. UPON ARRIVING TO ICU PT'S BP'S WERE DIFFICULT TO OBTAIN. LEVOPHED STARTED AT 5MCG/MIN WITH FLUID BOLUS STILL INFUSING. SBP 100'S WITH MAP'S 80'S; THEREFORE, TURNED OFF LEVOPHED TO OBTAIN BLOOD DRAW. PT DIDN'T TOLERATE BEING OFF THE LEVOPHED AT ALL AND PRESSURES DROPPED TO WITH MAP IN THE 30'S. LEVOPHED RESTARTED AT 15MCG/MIN WITH VASOPRESSIN ORDERED. RHYHTHM WAS AFIB WITH RATE >100. RATE THEN NOTED TO DROP TO 60 WITH NO BP ABLE TO BE OBTAINED AT THIS TIME. 1/2 AMP OF EPI PUSHED WITH PT SLOWLY RESPONSIVE TO MEDICATION PUSH. OBTAINED A DOPPLER BP WITH SYSTOLIC 178/D. CONTINUED TO MONITOR PRESSURES CONTINUOUSLY EVERY 2-5 MINUTES UNTIL PRESSURES STABILZED FROM EPI PUSH. LEVO WAS INFUSING AT A MAX OF 30MCG/MIN, WELL VASO. HOWEVER, SINCE THEN PT'S PRESSURES HAVE STABILIZED WITH SBP 130-140'S AND BOTH PRESSORS ARE ON STANDBY AT THIS POINT. PT IS AWAKE AND RESPONSIVE; FOLLOWING SIMPLE ONE-TWO STEP COMMANDS. PT REMAINS VERY COLD AND PALE; TEMP 93.[address] WEEPING EDEMA NOTED TO BUE'S AND BLE'S. STAGE II PRESSURE ULCER TO COCCYX THAT IS CURRENTLY MURRAY. WILL REPORT OFF TO DAY RN REGARDING OBTAINING PHOTOS AND DRESSING CHANGE. REPORT HANDED OFF TO CARLEY CASTRO
[2021-07-05 06:54] LABS: Anti-Xa UFH, PHA Monitoring 0.1 IU/mL; International Normalized Ratio 2.68; Prothrombin Time Results 26.4 Sec (9.7-11.5)
--- NOTE | 2021-07-05 08:26 | NUR ---
AM NOTE... ASSUMED CARE OF PT AT 0700, THE PT IS ON BIPAP AT 20/12 AND 100% WITH O2 SATS UNKNOWN D/T POOR PERFUSION. THE PT'S L/S COARSE CRACKLES NOTED IN ALL LOBES RR IS 22-23. THE PT WAKES TO VERBAL STIMULI BUT ONLY RESPONDS WITH "HI" OR "YES" AT THIS TIME. THE PT IS IN SR IN THE 60'S-80'S BP AT THE START OF THIS SHIFT(0700) WAS SBPs IN THE 140'S, AT THIS TIME THE LEVOPHED WAS STOPPED BY NOC SHIFT RN. THE LEVOPHED WAS RESTARTED AT 0815 AT 4MCG/MIN TO KEEP MAPS >60, AT 0835 THE LEVOPHED WAS TITRATED UP TO 6MCG/MIN. THE PT HAS 3+ EDEMA NOTED TO HER BUE AND 2+ TO HER BLE, PULSES FAINT TO THE BILATERAL RADIAL AND DOPPLER TO THE P. TIBIAL AND PEDAL. BT PRESENT AND VERY HYPOACTIVE, ABD IS SOFT AND TENDER TO PALPATION. THE PT'S ALVARADO IS PATENT AND DRAINING TO GRAVITY, THE PT'S ALVARADO WAS FLUSHED WITH 10MLS OF STERILE NS TO CHECK PATENCY, SCANT URINE NOTED IN THE ALVARADO TUBING. THE PT'S HEELS ARE PURPLE AND SOFT, THESE WERE FLOATED OFF THE BED. WILL CONTINUE TO MONITOR.
--- NOTE | 2021-07-05 12:31 | NUR ---
PT UPDATE.... THE PT'S BIPAP FIO2 HAS BEEN TITRATED DOWN FROM 100% AT THE START OF THIS SHIFT TO CURRENTLY 40% WITH O2 SATS 93-95%. THE PT'S L/S HAVE BECOME DIM T/O. THE PT'S SON IS AT THE BEDSIDE AND OTHER FAMILY FROM OUT OF STATE ARE ON THE WAY. THE PT'S BLE ARE MORE PUFFY AND THE PT'S TOES ARE PURPLE. THE PT HAS NOT MADE ANY URINE SINCE ARRIVAL TO THE ICU. THE PT'S TEMP HAS IMPROVED AND IS NOW >96.0. THE RT TRIALED THE PT OFF OF BIPAP AND REPORTED TO THIS RN THAT THE PT HAD A VERY MINIMAL RESPIRATORY DRIVE AND WHEN SHE DID BREATH IS WAS VERY SHALLOW. THE PT'S CARE CONTINUES WITH Q2 TURNS AND HER HEELS FLOATED OFF THE BED. PALLIATIVE CARE RN ANTHONY NOTIFIED OF THE PT'S CHANGE IN CONDITION AND THE PLAN OF MORE FAMILY COMING FROM OUT OF STATE. WILL CONTINUE TO MONITOR.
--- NOTE | 2021-07-05 15:39 | NUR ---
Call from Radiology: Radiologist contacted unit, spoke with this RN. Reported pneumothorax to rt side seen on CT scan. Call placed to Dr. Salinas at this time to report findings, message left to return phone call.
--- NOTE | 2021-07-05 15:49 | NUR ---
PT UPDATE.... THE PT WAS TAKEN TO CT AT APROX 1500 THIS RN NOTED THAT THE PT'S LOC HAS CHANGED AND SHE IS MORE OBTUNDED THAN SHE WAS AT APROX 1400. PRIOR TO THIS THE PT WAS STILL CONFUSED, ATTEMPTING TO PULL THE BIPAP MASK OFF AND PULL OFF HER GOWN/TELE LEADS, SHE WAS ALSO ATTEMPTING TO ANSWER QUESTIONS AND FOLLOW SIMPLE COMMANDS. CURRENTLY THE PT WILL MOAN TO NOXIOUS STIMULI BUT THAT IS ALL. AFTER THE CT SCAN WAS DONE THE RADIOLOGIST CALLED THE ICU CHARGE NURSE TO NOTIFIY STAFF THAT PER THE CT SCAN THE PT HAD A PNEUMO ON THE RIGHT SIDE. PROVIDER IS AWARE. WILL CONTINUE TO MONITOR.
--- NOTE | 2021-07-05 18:27 | NUR ---
SHIFT SUMMARY... AT 1725 A CHEST TUBE WAS PLACED BY THE TRACK RIDER ON THE RIGHT UPPER CHEST WALL, THE PT TOLERATED THIS WELL WITH NO SEDATION OR PAIN MEDICATION GIVEN. CREPITUS NOTED TO THE RIGHT UPPER CHEST WALL, THE AREA WAS MARKED. THE PT'S O2 SATS IMPROVED FROM 89-90% TO 95-97% AFTER THE CHEST TUBE PLACEMENT. A CHEST XRAY WAS DONE AFTER PLACEMENT. THE PT'S BP DROPPED DURING THIS PROCEDURE DOWN TO THE 50'S-30'S, A 500MLS BOLUS OF NS WAS GIVEN AND THE PT'S LEVOPHED WAS INCREASED TO 25MCG/MIN. THE PT HAS NOT MADE ANY URINE THIS SHIFT, PROVIDER IS AWARE. THE PT'S BUE EDEMA HAS INCREASED AND THE LEFT ARM HAS STARTED WHEEPING. THE PT'S BIPAP SETTINGS ARE 20/12 AND 35% WITH O2 SATS >90%. L/S CONTINUE TO BE DIM T/O. THE PT HAS NOT HAD A BM THIS SHIFT. THE FAMILY WAS UPDATED ON THE PT'S CURRENT CONDITION AND PLAN OF CARE. WILL CONTINUE TO MONITOR UNTIL REPORT IS GIVEN TO ONCOMING RN.
[2021-07-06 03:59] LABS: BASOPHILS ABSOLUTE AUTO 0.08 K/mm3 (0.00-0.23); BASOPHILS PERCENT AUTO 0 % (0-2); EOSINOPHILS PERCENT AUTO 0 % (0-6); Hematocrit 33.3 % (33.0-51.0); Hemoglobin 10.3 g/dL (11.5-16.0); Mean Corpuscular HGB 28.5 pg (26.0-34.0); Mean Corpuscular HGB Conc 30.9 g/dL (31.5-36.5); Mean Corpuscular Volume 92 fL (80-100); NRBC ABSOLUTE 0.79 K/mm3 (0.00-0.02); NRBC Auto 3.2 /100 WBC (0.0-0.2); RDW Coefficient Variation 15.3 % (11.7-14.2); RDW Standard Deviation 52.3 fL (35.1-46.3); Red Blood Cell Count 3.61 M/mm3 (3.80-5.20); White Blood Cell Count 24.85 K/mm3 (4.00-11.30)
[2021-07-06 04:04] LABS: IMMATURE GRAN ABSOLUTE AUTO 0.59 K/mm3 (0.00-0.10); IMMATURE GRAN PERCENT AUTO 2 % (0-1); LYMPHOCYTES ABSOLUTE AUTO 0.65 K/mm3 (0.84-5.20); LYMPHOCYTES PERCENT AUTO 3 % (21-46); MONOCYTES PERCENT AUTO 2 % (4-13); NEUTROPHILS ABSOLUTE AUTO 23.13 K/mm3 (1.96-9.15); NEUTROPHILS PERCENT AUTO 93 % (41-73)
[2021-07-06 04:05] LABS: Platelet Count 41 K/mm3 (150-400)
[2021-07-06 04:19] LABS: Albumin, Blood 1.6 g/dL (3.4-5.0); Anion Gap 11 mmol/L (6-16); Blood Urea Nitrogen 63 mg/dL (8-24); Bun/Creatinine Ratio 29.6 (12.0-20.0); CO2, Blood 18 mmol/L (21-32); Calcium, Blood 6.6 mg/dL (8.5-10.1); Chloride, Blood 111 mmol/L (98-108); Creatinine, Blood 2.13 mg/dL (0.40-1.00); Glomerular Filtration Rate 22 (60-); Glucose, Blood 150 mg/dL (70-99); Phosphorus, Blood 6.5 mg/dL (2.5-4.9); Potassium, Blood 4.4 mmol/L (3.5-5.5); Sodium, Blood 140 mmol/L (136-145); Vancomycin, Random 5.5 ug/mL
--- NOTE | 2021-07-06 05:56 | NUR ---
SHIFT SUMMARY PTS CONDITION IMPROVED FROM START OF SHIFT. PT ALERT TO PERSON BUT STILL CONFUSED, CONSTANTLY ASKING FOR THE MASK TO BE REMOVED THAT HAS BEEN OFF FOR MOST OF THE NIGHT. PT NOW ON HIFLOW NC @ 45% c O2 SATS >90%. LEVOPHED AND VASOPRESSIN CURRENTLY OFF, TRANSITIONED TO DOPAMINE. DOPAMINE CURRENTLY @ 2MCG/KG/MIN c MAP >65. CHEST TUBE DRAINING SS FLUID, 30CC OUT THIS SHIFT. CREPITUS TO RU CHEST WALL DECREASING AFTER BIPAP DC'D. URINE OUTPUT NOT REALLY IMPROVING, 30CC OUT. NO BM. WEEPING EDEMA REMAINS IN UPPER EXTREMITIES. FAMILY- PTS DAUGHTER (RAZA) ARRIVED FROM [place] AROUND 1999 YESTERDAY, SHE IS THE POWER OF GAME FARM SUPERVISOR. THIS NURSE UPDATED PT TO THE SEVERITY OF PTS CONDITION, RAZA IS UNDERSTANDING. PTS SON SILVERIO ALSO AT BEDSIDE AT THAT TIME, HE IS ALSO AWARE AND UNDERSTANDING OF PTS SEVERITY OF ILLNESS. RAZA AND SILVERIO STATED THEY WOULD BE HERE TODAY AROUND 0700. RAZA'S CONTACT # [phone]
--- NOTE | 2021-07-06 08:12 | NUR ---
AM NOTE: ASSUMED CARE OF PT AT 0700. PT IS AROUSABLE THIS MORNING AND IS ALERT AND ORIENTED TO SELF AND IS ABLE TO FOLLOW SIMPLE COMMANDS; PT IS CONFUSED REGARDING DATE/TIME OF DAY. LUNG SOUNDS ARE DIMINISHED IN ALL LUNG WINN, BUT THE R. LUNG IS MORE DIMINSHED THAN THE RIGHT. FINE CRACKLES ARE HEARD ON INSPIRATIONS. PT APPEARS TO BE TAKING SHALLOW BREATHS; RR ARE 12-14 AT THIS TIME. PT CURRENTLY HAS A CHEST TUBE PLACED ANTERIORLY IN THE UPPER RIGHT LUNG FIELD AND IT IS PATENT AND INTERMEDIATE BUBBLING IS OBSERVED. CREPITUS IS NOTED ON ASSESSMENT AND REMAINS WITHIN THE MARKED AREA. PT'S HEART SOUNDS ARE DIFFICULT TO ASCULTATE; HR IN THE 50'S AND SBP IN THE 120-130. CURRENTLY DOPAMINE IS TRANSFUSING AT 4 MCG/KG/MIN AND LEVOPHED CONT. TO BE ON SB. BOWEL SOUNDS HEARD IN ALL FOUR QUADRANTS AND ARE HYPOACTIVE. PT HAS TENDERNESS UPON PALPATION IN THE RUQ. PT HAS INDWELLING CATHETER DRAINING TO GRAVITY BUT CONT. TO HAVE NO URINE OUTPUT. PT HAS 2+ EDEMA IN THE UPPER AND LOWER EXTREMITIES. PT'S SKIN REMAINS COOL TO TOUCH AND PALE. DIFFICULT TO ASSESS CAPILLARY REFIL IN THE TOES. CXR COMPLETED THIS MORNING AT 0715. WILL CONTINUE TO MONITOR.
--- NOTE | 2021-07-06 09:00 | NUR ---
AM NOTE... ASSUMED CARE OF PT AT 0700, THE PT IS A&O TO SELF AND FOLLOWING SIMPLE COMMANDS WHILE AWAKE BUT IS VERY LETHARGIC AND HARD TO AROUSE. THE PT IS ON DOPAMINE RUNNING AT 4MCG/KG/MIN WITH MAPS >65 AND HR >50. THE PT IS ON AIRVO AT 35L AND 45% FIO2 WITH O2 SATS >90%. L/S DIM ON THE RIGHT SIDE WITH FINE CRACKLES NOTED ON THE LEFT. THE PT'S CHEST TUBE SITE IS SECURE WITH NO EYELETS EXPOSED. THE DRY SUCTION COLLECTION DEVICE IS SECURE TO THE FLOOR, NO KINKS NOTED IN THE TUBING, THERE IS INTERMITENT BUBBLING NOTED IN THE LEAK CHAMBER WITH THE PT'S EXHALATION. CREPITUS NOTED TO THE RIGHT UPPER CHEST WALL, THE AREA OF THE CREPITUS IS SIMILAR TO THE AREA AND SIZE IT WAS YESTERDAY AFTER PLACEMENT. THE PT IS IN SR W/PACs, THE PT HAS 3+ WHEEPING EDEMA NOTED TO THE PT'S BUE AND 2+ TO THE PT'S LLE AND 3+ TO THE RLE. THE PT'S BT PRESENT AND HYPOACTIVE, ABD IS SOFT AND TENDER TO PALPATION TO THE RUQ. THE PT'S TEMP ALVARADO IS PATENT AND DRAINING A SCANT AMOUNT OF CLOUDY YELLOW URINE. WILL CONTINUE TO MONITOR.
--- NOTE | 2021-07-06 11:33 | NUR ---
PT UPDATE.... THE PT WAS TAKEN TO CT SCAN FOR A CT OF THE HEAD TO R/O A CVA. FOR TRANSPORT THE PT WAS TAKEN OFF OF AIRVO AT 35L AND 45% AND PLACED ON A HI FLOW NC AT 8L, THE PT'S O2 SATS WERE >95%. ONCE BACK IN THE ROOM THE O2 WAS TITRATED DOWN TO 6L THEN TO 4L WITH O2 SATS 94%-97%. THE PT'S SON (SILVERIO) AND DAUGHTER (NICOLLE) WERE AT THE BEDSIDE TO VISIT THE PT, DURING THIS TIME THE EXTRUSION MACHINE OPERATOR WAS IN THE ROOM TO ASSESS THE PT, THE PROVIDER SPOKE WITH THE FAMILY ABOUT THE PT'S CURRENT CONDITION AND PLAN OF CARE, PER THE PT'S SON AND DAUGHTER THEY UNDERSTAND THE PT'S POOR PROGNOSIS. PER THE DAUGHTER WHO IS THE DECISION MAKER: "I WANT TO WAIT A FEW DAYS TO SEE HOW SHE DOES AND TO TALK THIS ALL OVER WITH THE REST OF THE FAMILY." PALLIATIVE CARE RN NOTIFIED. WILL CONTINUE TO MONITOR.
--- NOTE | 2021-07-06 18:45 | NUR ---
SHIFT SUMMARY... THE PT'S O2 WAS TITRATED DOWN FROM 8L NC TO 2L NC WITH O2 SATS >90% L/S CONTINUE TO BE DIM ON THE RIGHT WITH FINE CRACKLES NOTED. THE PT CONTINUES TO HAVE 3+ EDEMA TO HER BUE AND BLE. THE PT HAS BEEN VERY LETHARGIC T/O THIS SHIFT AND WAKES TO LOUD VERBAL STIMULI AND TOUCH SHE WILL OPEN HER EYES AND HAS GARBLED SPEECH. THE PT WAS ON DOPAMINE THAT WAS TITRATED OFF AT 1320, THE PT'S MAPS HAVE BEEN >60 AND HR HAS BEEN >50 UNTIL 1800 WHEN HER BPs STARTED TO TREND DOWN THE DOPAMINE WAS TURNED BACK ON TO 2MCG/KG/MIN. THE HAS A LARGE PETECHIAL RASH TO THE POSTERIOR OF THE RIGHT CALF, SMALL SCATTERED PETECHIAL RASHES NOTED TO HER RLL AND ARMS. PROVIDER IS AWARE. THIS RN AND CHARGE NURSE SPOKE WITH THE FAMILY ABOUT COMFORT CARE/HOSPICE, AND THE PLAN IS TO TAKE THE PT HOME WITH HOSPICE. WILL CONTINUE TO MONITOR UNTIL REPORT IS GIVEN TO ONCOMING RN.
--- NOTE | 2021-07-06 18:46 | NUR ---
SHIFT SUMMARY: PT BECAME MORE ALERT THROUGHOUT THE DAY AND WAS ABLE TO ANSWER SOME YES AND NO QUESTIONS AND HAD ENERGY TO VISIT WITH HER CHILDREN AND GRANDDAUGHTER. THE DOPAMINE WAS INFUSING THIS AFTERNOON AT 2 MCG/KG/MIN BUT WAS PLACED ON STANDBY AT 1320; PRESSURES WERE STABLE FOR THE MAJORITY OF THE AFTERNOON BUT BEGAN TO DROP AROUND 1730. SBP GOT DOWN TO THE 80'S WITH MAPS IN THE LOW 60'S. BY 1800 THE DOPAMINE WAS STARTED AGAIN AT 2 MCG/KG/MIN; SBP ARE NOW MORE STABLE AND ARE IN THE 110'S. HR REAMAINED IN THE 50-60'S THROUGHOUT THE SHIFT. THE PT'S OXYGEN HAS BEEN TITRATED THROUGHOUT THE DAY AND THE PT IS CURRENTLY RECIEVING 2 L VIA NC AND O2 LEVELS HAVE BEEN 96<. A RECTAL THERMOMETER WAS PLACED TO ENSURE ACCURATE TEMPERATURE READING DUE TO LOW READINGS ALL MORNIG; TEMPERATURE IS CURRENTLY AT 94.6. AT 1515 THE BLAZE WARMER WAS PLACED ON THE PT. THERE IS A TEMP ALVARADO PATENT AND HANGING TO GRAVITY. FOR THIS SHIFT THERE WAS 45 ML URINE OUTPUT; PROVIDER AWARE. THE PT HAS A CHEST TUBE PLACED ANTERIORLY IN THE UPPER RIGHT LOBE REGION AND IS PATENT AND DRAINGING TO GRAVITY WITH INTERMEDIATE BUBBLING NOTED. THE PT HAS HAD NO C/O PAIN THROUGHOUT THE SHIFT. THE PT'S FAMILY CAME IN TODAY AT 1815 AND SPOKE WITH SPECIAL NEEDS TEACHER, ROSSY, AND DESIRE TO MOVE PT TO COMFORT CARE; HOSPICE REFERRAL ORDERED. WILL CONTINUE TO MONITOR UNTIL ONCOMING RN REACHES THE FLOOR.
--- NOTE | 2021-07-06 21:32 | NUR ---
SHIFT ASSESSMENT ASSUMED CARE OF PT @ 1900. PT LAYING IN BED, ALERT TO PERSON, VERY DIFFICULT TO UNDERSTAND. UNABLE TO SQUEEZE HANDS ON COMMAND BUT WILL COOPERATE WITH ORAL CARE. R ANTERIOR CT REMAINS IN PLACE, SMALL AMNT OF SS FLUID DRAINING TO DRY SUCTION CHAMBER. DRESSING WAS CHANGED TODAY WHICH HAS ALMOST STOPPED THE SMALL LEAK. CREPITUS GREATLY IMPROVED TO R CHEST WALL. PT DENIES PAIN AT THIS TIME. ON 2LPM O2 c SATS> 90%. DOPAMINE CONTINUES AT 2MCG/KG/MIN c MAP >65, WILL ATTEMPT TO TITRATE OFF AGAIN TONIGHT. SOFT BL WRIST RESTRAINTS ON DUE TO PT REACHING FOR CHEST TUBE AT TIMES. BLAZE HUGGER REMAINS ON, RECTAL TEMP SLOWLY COMING UP. ALVARADO CATH WITH SCANT OUTPUT.
[2021-07-07 04:06] LABS: BASOPHILS ABSOLUTE AUTO 0.05 K/mm3 (0.00-0.23); BASOPHILS PERCENT AUTO 0 % (0-2); Hematocrit 25.6 % (33.0-51.0); LYMPHOCYTES ABSOLUTE AUTO 0.36 K/mm3 (0.84-5.20); LYMPHOCYTES PERCENT AUTO 2 % (21-46); MONOCYTES ABSOLUTE AUTO 0.32 K/mm3 (0.16-1.47); MONOCYTES PERCENT AUTO 2 % (4-13); Mean Corpuscular HGB 28.4 pg (26.0-34.0); Mean Corpuscular HGB Conc 31.3 g/dL (31.5-36.5); Mean Corpuscular Volume 91 fL (80-100); NRBC ABSOLUTE 0.45 K/mm3 (0.00-0.02); NRBC Auto 2.5 /100 WBC (0.0-0.2); RDW Coefficient Variation 15.6 % (11.7-14.2); RDW Standard Deviation 51.7 fL (35.1-46.3); Red Blood Cell Count 2.82 M/mm3 (3.80-5.20); White Blood Cell Count 17.99 K/mm3 (4.00-11.30)
[2021-07-07 04:11] LABS: EOSINOPHILS ABSOLUTE AUTO 0.03 K/mm3 (0.00-0.68); EOSINOPHILS PERCENT AUTO 0 % (0-6); IMMATURE GRAN ABSOLUTE AUTO 0.41 K/mm3 (0.00-0.10); IMMATURE GRAN PERCENT AUTO 2 % (0-1); NEUTROPHILS ABSOLUTE AUTO 16.82 K/mm3 (1.96-9.15); NEUTROPHILS PERCENT AUTO 93 % (41-73); Platelet Count 22 K/mm3 (150-400)
[2021-07-07 04:26] LABS: Alanine Aminotransfer (ALT/SGP 437 U/L (12-78); Albumin, Blood 2.6 g/dL (3.4-5.0); Albumin/Globulin Ratio 1.2 (0.8-1.8); Alk Phos 203 U/L (50-136); Anion Gap 10 mmol/L (6-16); Aspartate Aminotrans (AST/SGOT 501 U/L (12-37); Bilirubin, Indirect 0.6 mg/dL (0.1-0.7); Bilirubin, Total 1.6 mg/dL (0.1-1.0); Blood Urea Nitrogen 65 mg/dL (8-24); Bun/Creatinine Ratio 25.2 (12.0-20.0); CO2, Blood 19 mmol/L (21-32); Calcium, Blood 6.3 mg/dL (8.5-10.1); Chloride, Blood 112 mmol/L (98-108); Creatinine, Blood 2.58 mg/dL (0.40-1.00); Globulin, Blood 2.2 g/dL (2.2-4.0); Glomerular Filtration Rate 17 (60-); Glucose, Blood 107 mg/dL (70-99); Phosphorus, Blood 5.2 mg/dL (2.5-4.9); Potassium, Blood 4.1 mmol/L (3.5-5.5); Sodium, Blood 141 mmol/L (136-145); Total Protein, Blood 4.8 g/dL (6.4-8.2); Vancomycin, Random 13.2 ug/mL
--- NOTE | 2021-07-07 06:40 | NUR ---
SHIFT SUMMARY PT BECOMING MORE WEAK THE NIGHT CARRIED ON. FAINT BL ACCOUNTING ASSISTANT WHEN ASKED. WRIST RESTRAINTS REMOVED. WEEPING EDEMA REMAINS IN UPPER EXTREMITIES. LS ARE IMPROVING, CHEST TUBE DRAINING MORE SEROUS FLUID NOW. DOPAMINE GTT OFF SINCE AROUND 2229, MAP >65 WHILE PT IS AWAKE. O2 REQUIREMENTS NOW 1LPM VIA NC, SATS >90%. BLAZE HUGGER ON UNTIL 0400, CORE TEMP 97.0. PLANS TO TRANSITION TO COMFORT CARE THIS AM. REPORT TO ONCOMING NURSE.
--- NOTE | 2021-07-07 09:02 | NUR ---
AM NOTE: ASSUMED CARE OF PT AT 0700. PT IS AROUSABLE BY VERBAL STIMULI BUT IS NOT ABLE TO FORM WORDS OR ANSWER SIMPLE QUESTIONS; SPEECH IS GARBLED AT THIS TIME. PT APPEARS TO BE TIRED THIS MORNIGN AND MORE WEAK THAN YESTERDAY. LUNG SOUNDS WERE DIMINISHED IN THE UPPER LOBES WITH WHEEZING PRESENT; LUNG SOUNDS WERE DIFFICULT TO ASCULTATE IN THE LOWER LOBES BILATERALLY. PT CURRENTLY IN ON 1 L OF O2 VIA NC WITH O2 LEVELS 96<. PT APPEARS TO BE TAKING SHALLOW BREATHS. THE PT'S HR IS IN 50-60, SBP IN THE 100-110, AND MAPS 65<. THE PT HAS HAD DOPAMINE ON STANDBY SINCE LAST NIGHT. ABD IS TENDER IN THE URQ UPON PALPATION. THERE IS A TEMPERATURE ALVARADO IN PLACE THAT IS PATENT AND DRAINING TO GRAVITY. PT'S TEMPERTURE STABLE THIS MORNING AT 97.2. THE PT HAS A CHEST TUBE PLACED ANTERIORLY IN THE UPPER RIGHT LUNG REGION AND IS CURRENTLY HOOKED UP TO SUCTIONING AND INTERMEDIATE BUBBLING IS PRESENT. THE CHEST TUBE DRESSING SITE IS C/D/I. THE PT IS RESTING COMFORTABLE IN BED. WILL CONTINUE TO MONITOR THROUGHOUT THE DAY.
--- NOTE | 2021-07-07 11:44 | NUR ---
AM NOTE... ASSUMED CARE OF PT AT 0700, THE PT'S CHEST TUBE IS SET TO WALL SUCTION AT -20 WITH INTERMITTENT BUBBLING. VERY MINIMAL CREPITUS IS NOTED ON THIS ASSESSMENT, THIS HAS IMPROVED SINCE YESTERDAY. THE PT IS ON 2L NC WITH O2 SATS 90-95% L/S COARSE RHONCHI T/O WITH EXP WHEEZES AND DIM IN THE BASES. RR 10-12. BT PRESENT AND VERY HYPOACTIVE, ABD IS SOFT TO PALPATION, THE PT'S BLE HAVE 2+ EDEMA NOTED WITH INCREASED PETECHIAL RASH TO BLE. THE PT'S BUE HAS 4+ EDEMA BUT THE SWELLING IN THE PT'S HANDS HAS IMPROVED. THE PT IS IN SR/SB 50'S-60, THE BP IS SOFT BUT MAPS ARE >60. THE PT'S ALVARADO IS PATENT AND DRAINING TO GRAVITY. THE PT IS VERY LETHARGIC, SHE WILL WEAKLY OPEN HER EYES TO STIMULI BUT IS UNABLE TO SPEAK, FOLLOW COMMANDS OR RESPOND TO QUESTIONS. THE PLAN IS FOR THE FAMILY TO TAKE THE PT HOME ON HOSPICE. PALLIATIVE CARE RN NOTIFIED. WILL CONTINUE TO MONITOR.
--- NOTE | 2021-07-07 13:20 | NUR ---
Assessed pt this afternoon, and it appeared clear that pt is actively dying. Her feet are mottling, her pupils are fixed and dialated, with agonal breathing at 8 to 10 breaths per minutes. I have educated the family that the pt would likely not survive transport home at this point, as family is now requesting we order hospice now. I gently explained to them the time has likely passed for hospice. However. I have spoken to Care Management and will reach out to hospices to see what is available. Pt placed on Comfort Care now.
--- NOTE | 2021-07-07 14:15 | NUR ---
PT UPDATE... THE PT WAS CHANGED TO COMFORT CARE AND THE FAMILY DECIDED AGAINST HOME HOSPICE. REPORT WAS GIVEN TO MAYRA HOWE.
--- NOTE | 2021-07-07 15:22 | NUR ---
ASSUMPTION OF CARE RECEIVED HANDOFF REPORT FROM RN AT APPROXIMATELY 1400. PT IS CURRENTLY RESTING IN BED, DIFFICULT TO ROUSE. FAMILY IS AT BEDSIDE AND SPIRITUAL CARE PROVIDER IS IN ROOM.
--- NOTE | 2021-07-07 15:53 | NUR ---
Spiritual care visit conducted. Patient is minimally responsive. Pt's dtr and son are present in the rm. I met pt's other son, Chip and granddtr in the hallway prior to entering pt's rm. They immediately express their wishes that a prayer be said for the pt. I then gladly provide prayer for the pt and family. I spend time with family as they walk throught pt's extraordinary life, generous characterists and deep spiritual beliefs. I provide therapeutic listening, anticipatory grief support, theological insights and prayer. Family show signs of being comforted and of having an increased peace about the transition that pt appears to be entering. Appreciattion is expressed for spiritual care. I will continue to remain available.
--- NOTE | 2021-07-07 18:20 | NUR ---
SHIFT SUMMARY PT HAS BEEN RESTING IN BED. PT WILL OPEN EYES TO SOUND BUT WILL NOT RESPOND IN ANY MEANINGFUL WAY. PT HAS FAMILY AT BEDSIDE. PT APPEARS TO BE COMFORTABLE AND FAMILY HAS DECLINED ANY PAIN MANAGEMENT AT THIS TIME. ORAL CARE WAS PERFORMED PER FAMILY REQUEST. ALL QUESTIONS AND CONCERNS FROM FAMILY HAVE BEEN ADDRESSED AT THIS TIME AND THIS RN REMAINS AVAILABLE TO THEM UNTIL HAND-OFF REPORT.
--- NOTE | 2021-07-07 19:10 | NUR ---
ASSUMED CARE. REPORT RECEIVED FROM EMMANUEL RN. PT RESTING IN BED ATT, ON 02 VIA NC AT 3 L/MIN. R/CHEST TUBE IN PLACE, SMALL LEAK NOTED, PHYSICAN AWARE. PT DOES NOT APPEAR TO BE IN ANY PAIN/DISTRESS ATT. WILL CONTINUE TO MONITOR.
--- NOTE | 2021-07-07 20:26 | NUR ---
PROVIDED ORAL CARE, PT APPEARS TO BE RESTING COMFORTABLY AT THIS TIME.
--- NOTE | 2021-07-07 22:00 | NUR ---
ORAL CARE COMPLETED. PT APPEARS TO BE RESTING COMFORTABLY AT THIS TIME.
--- NOTE | 2021-07-08 00:28 | NUR ---
FAMILY AT BEDSIDE. ORAL CARE COMPLETED AND PRN MORPHINE 5MG GIVEN. PT APPEARS TO BE RESTING COMFORTABLY.
--- NOTE | 2021-07-08 02:17 | NUR ---
ORAL CARE COMPLETED, PT APPEARS TO BE RESTING COMFORTABLY AT THIS TIME.
--- NOTE | 2021-07-08 06:34 | NUR ---
TRANSFERRED PATIENT AT APPROXIMATELY 0600. REPORT GIVEN TO MEDICAL FLOOR RN.
--- NOTE | 2021-07-08 06:38 | NUR ---
PT T/F TO ROOM 363 VIA BED AT 0605. THIS RN AGREES TO SHIFT REPORT AND ASSESSMENT FINDINGS. O2 AT 2L VIA NC, RESPS E/U. R.CHEST TUBE IN PLACE, SMALL LEAK NOTED, PHYSICIAN AWARE PER [facility] NET REPORT. CENTRAL LINE TO R.IJ IS SL'D. PT W/O S/S ACUTE DISTRESS. COMFORT MEASURES BEING MAINTAINED. WCTM AND REPORT TO DAY RN.
--- NOTE | 2021-07-08 13:00 | NUR ---
GLORIA PASSED AT 1230; TWO RN VARIFIED. CHARGE NURSE, MD, AND FAMILY INFORMED. LINES REMOVED AND CARE DONE.
--- NOTE | 2021-07-08 13:26 | NUR ---
Spiritual care visit conducted. Patient is lying in bed and minimally responsive. Pt's dtr Kaylah is bedside and is emotional. She talks about the complication of her grief and her spiritual distress. I provide therapeutic listening, anticipatory grief support, theological insights and prayer. Kaylah responds well and shows signs of being comforted and greater peace with God.
== END 2021-07-08 12:30 | DRG 871 ==
LOC: ER 13:05 → ICUW 13:06 → ICUE 13:06 → ICUW 17:07 → ICUE 07-01 16:10 → MEDS 07-03 14:00 → ICUE 07-05 05:46 → MEDS 07-08 06:08
PROVIDERS: Emergency Medicine; Internal Medicine; Internal Medicine Critical Care Medicine; Nurse Practitioner Acute Care; ADMIT Internal Medicine
PROC: 3E033XZ Introduction of Vasopressor into Peripheral Vein, Percutaneous Approach (ICD-10-PCS; principal; 2021-06-30)
PROC: 02HV33Z Insertion of Infusion Device into Superior Vena Cava, Percutaneous Approach (ICD-10-PCS; 2021-06-30)
PROC: 8E0ZXY6 Isolation (ICD-10-PCS; 2021-06-30)
PROC: 3E0333Z Introduction of Anti-inflammatory into Peripheral Vein, Percutaneous Approach (ICD-10-PCS; 2021-06-30)
PROC: 3E03329 Introduction of Other Anti-infective into Peripheral Vein, Percutaneous Approach (ICD-10-PCS; 2021-06-30)
PROC: 0W9930Z Drainage of Right Pleural Cavity with Drainage Device, Percutaneous Approach (ICD-10-PCS; 2021-07-05)
DX: A41.9 Sepsis, unspecified organism (principal); U07.1 COVID-19; R65.21 Severe sepsis with septic shock; G92.8 Other toxic encephalopathy; J96.01 Acute respiratory failure with hypoxia; I21.A1 Myocardial infarction type 2; J12.82 Pneumonia due to coronavirus disease 2019; D65 Disseminated intravascular coagulation [defibrination syndrome]; E43 Unspecified severe protein-calorie malnutrition; K72.00 Acute and subacute hepatic failure without coma; J93.83 Other pneumothorax; N17.9 Acute kidney failure, unspecified; J44.0 Chronic obstructive pulmonary disease with (acute) lower respiratory infection; Z68.1 Body mass index [BMI] 19.9 or less, adult; J98.11 Atelectasis; Z51.5 Encounter for palliative care; Z66 Do not resuscitate; Z78.1 Physical restraint status; R19.7 Diarrhea, unspecified; E87.6 Hypokalemia; I48.91 Unspecified atrial fibrillation; R57.0 Cardiogenic shock; F10.20 Alcohol dependence, uncomplicated; F17.210 Nicotine dependence, cigarettes, uncomplicated; Z86.73 Personal history of transient ischemic attack (TIA), and cerebral infarction without residual deficits; Z98.890 Other specified postprocedural states; Z88.0 Allergy status to penicillin; Z79.82 Long term (current) use of aspirin; Z79.01 Long term (current) use of anticoagulants; Z79.899 Other long term (current) drug therapy
CPT/HCPCS: 32551; 36415; 36416; 36556; 51701; 51702; 70450; 71045; 71250; 76700; 80048; 80053; 80069; 80202; 81001; 82248; 82803; 83036; 83605; 83735; 83880; 84100; 84145; 84484; 85025; 85027; 85379; 85520; 85610; 85730; 87040; 87070; 87086; 87106; 87205; 93005; 93010; 93306; 93308; 93321; 94640; 94660; 94664; 94760; 94762; 96365; 96367; 96375; 99285-25; A9270; C1751; J0282; J0456; J0610; J0696; J1265; J1650; J1940; J2060; J2370; J2765; J2930; J3010; J3370; J3480; J7030; J7040; J7050; J7060; J7512; P9046; U0004